=== PATIENT | female | born 1955 | race Caucasian/White ===

== ENCOUNTER 2020-03-18 15:48 | Outpatient (CLI) | payer OTHER, SELFPAY ==
--- NOTE | ~2020-03-18 | MM_ITS ---
EXAMINATION: MM screening [facility] BI w luis HISTORY: Screening mammogram TECHNIQUE: Craniocaudal and mediolateral oblique 3-D tomosynthesis images were obtained and synthetic 2-D images were generated. CAD analysis was submitted and interpreted. COMPARISON: 06/28/2018, 09/07/2016, 08/19/2015 BREAST PARENCHYMAL COMPOSITION: The breasts are heterogeneously dense, which may obscure small masses . FINDINGS: There is no evidence of suspicious mass, calcification, or architectural distortion to sugg est malignancy in either breast. There has been no suspicious interval change. IMPRESSION: 1. No mammographic evidence of malignancy. 2. Recommend routine screening mammography in one year. BI-RADS Category 1: Negative Reviewed, dictated and finalized at location A. NCIAL SALES ASSISTANT
== END 2020-03-18 15:49 | disposition home or self-care (01) ==
PROVIDERS: PCP Family Medicine; Visit Provider Obstetrics & Gynecology
DX: Z12.31 Encounter for screening mammogram for malignant neoplasm of breast (principal)
CPT/HCPCS: 77063; 77067

== ENCOUNTER → 2020-09-07 11:23 | Outpatient (CLI) | payer OTHER, SELFPAY ==
--- NOTE | ~2020-09-07 | XR_ITS ---
EXAMINATION:XR_CERV2-3V_CR DATE: 09/07/2020 12:03 INDICATION: Neck pain TECHNIQUE: AP, lateral, lateral swimmers and odontoid views of the cervical spine are provided. COMPARISON: None FINDINGS: Alignment is normal. The odontoid is intact. No fracture is identified. Vertebral body heig hts are maintained. There is mild loss of intervertebral disc space height at C5-6 and C6-7. Small de generative osteophytes project from the anterior endplates of multiple vertebral bodies. There is sev ere facet osteoarthritis on the left at C1-2. Moderate multilevel facet and uncovertebral joint osteo arthritis is seen throughout the remainder of the cervical spine. Prevertebral soft tissues are madeline l. IMPRESSION: 1. Moderate cervical spondylosis without acute findings. 2. 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 Reviewed, dictated and finalized at location A.
== END ==
PROVIDERS: PCP Family Medicine; Visit Provider Physician Assistant
DX: M47.892 Other spondylosis, cervical region (principal)
CPT/HCPCS: 72040

== ENCOUNTER 2021-02-01 01:33 | Day surgery (SDC) | payer OTHER, SELFPAY ==
[2021-01-22 13:00] VITALS: BMI 26.6
--- NOTE | 2021-01-29 13:49 | PM.HPGS ---
History of Present Illness History of Present Illness Consent: Risks, benefits, and alternatives have been discussed and questions answered. Patient agrees to proceed with procedure. Chief complaint: neoplasm screening Narrative: Radha Nagy is a 65 year old female referred for colon cancer screening. Her last colonoscopy was about 12 years ago and was unremarkable Review of Systems Review of Systems: All systems reviewed & are unremarkable except as noted in HPI and below PMFSH Past Medical History Medical History Anxiety Difficulty sleeping GERD (gastroesophageal reflux disease) HLD (hyperlipidemia) Onychomycosis Vitamin D deficiency, unspecified Wellness examination Surgical History Surgical History History of hysterectomy Family History Family History Father Family history of elevated blood lipids Family history of Parkinson's disease Mother Hypertension Social History Social History Smoking status: Never smoker Second hand tobacco smoke exposure: No Alcohol intake: current Alcohol use details: occasional Substance use: never Substance use type: does not use Living arrangements: alone Gender identity (if verbalized by the patient): Female Spiritual care concerns: No Meds Home Medications and Allergies Home Medications Medication Instructions Recorded Confirmed Type omeprazole 40 mg capsule,delayed 40 mg PO DAILY #30 cap 09/30/20 02/01/21 Rx release rosuvastatin 5 mg tablet 5 mg PO DAILY #90 tablet 09/30/20 02/01/21 Rx sertraline 100 mg tablet See Rx Instructions .ROUTE 10/22/20 02/01/21 Rx .COMPLEX #45 tablet krill dtm-hpina-0-dha-epa [Fish 1 cap PO DAILY 01/22/21 02/01/21 History Oil with Krill] qdmqqneggtzu-mll-updmzdr-FA 1 tablet PO DAILY 01/22/21 02/01/21 History [VIACTIV Multi-Vitamin] Allergies Allergy/AdvReac Type Severity Reaction Status Date / Time No Known Allergies Allergy Verified 02/01/21 06:14 Exam Resp: Auscultation: clear to auscultation bilaterally Cardio: Rate: regular rate Rhythm: regular rhythm GI: GI Palp: Yes Soft to palpation and No Tenderness to palpation present (GI) Assessment and Plan Assessment and plan (1) Colon cancer screening: Code(s): Z12.11 - Encounter for screening for malignant neoplasm of colon Status: Acute Assessment and Plan: Colonoscopy with possible biopsy or polypectomy or cautery or injection of substances.
--- NOTE | 2021-01-29 18:41 | P.PNAN_ITS ---
Anes - Initial Pre Proc Eval Procedure: Operation Date: 02/01/21 07:30 Proposed Procedures p Screening Colonoscopy - Omari Kaplan MD Date/Time: 01/29/21 18:41 Surgeon: Omari Kaplan MD Pre Op Diagnosis: neoplasm screening Patient Data Age: 65 Gender: F Height: 1.6 m Weight: 68.3 kg Allergies Allergy/AdvReac Type Severity Reaction Status Date / Time No Known Allergies Allergy Verified 02/01/21 06:14 Home Medications Medication Instructions Recorded Confirmed Type omeprazole 40 mg capsule,delayed 40 mg PO DAILY #30 cap 09/30/20 02/01/21 Rx release rosuvastatin 5 mg tablet 5 mg PO DAILY #90 tablet 09/30/20 02/01/21 Rx sertraline 100 mg tablet See Rx Instructions .ROUTE 10/22/20 02/01/21 Rx .COMPLEX #45 tablet krill cup-msjso-1-dha-epa [Fish 1 cap PO DAILY 01/22/21 02/01/21 History Oil with Krill] vlgyqdvysysm-nlb-qmzvxxo-FA 1 tablet PO DAILY 01/22/21 02/01/21 History [VIACTIV Multi-Vitamin] Patient hx anesthesia problems: none Family hx anesthesia problems: none Results Review: All pre-operative results and documents have been reviewed as part of the pre-operative evaluation. [facility] Past Medical History Medical History (Updated 01/29/21 @ 18:41 by Mike Vang DO) Anxiety Difficulty sleeping GERD (gastroesophageal reflux disease) HLD (hyperlipidemia) Onychomycosis Vitamin D deficiency, unspecified Wellness examination Surgical History Surgical History (Updated 01/29/21 @ 18:41 by Mike Vang DO) History of hysterectomy Family History Family History Father Family history of elevated blood lipids Family history of Parkinson's disease Mother Hypertension Social History Social History Smoking status: Never smoker Second hand tobacco smoke exposure: No Alcohol intake: current Alcohol use details: occasional Substance use: never Substance use type: does not use Living arrangements: alone Gender identity (if verbalized by the patient): Female Spiritual care concerns: No Anes - Eval Final PreProcedure Day of Procedure 12/17/21 18:41 Patient weight: overweight Heart: regular rate and rhythm Lungs: clear to auscultation and normal air movement Airway: Mallampati scale class II Neurological: alert and oriented Last oral intake: >/= 8 hours ASA classification: II Emergent: no Anesthetic plan: proceed Anesthesia type and monitoring: general GIVS and standard monitoring Results Review: All pre-operative results and documents have been reviewed as part of the pre-operative evaluation. Informed Consent: The patient's anesthetic plan and its attendant risks and benefits were discussed with the patient/family/POA. Questions were solicited and answers provided to the satisfaction of the patient/family/POA.
[2021-02-01 06:15] VITALS: BP 124/77; PULSE 97; RESP 16; TEMP 36.6; O2SAT 97
[2021-02-01] MEDS: LACTATED RINGERS 1,000 ML 150 ML IV CONT (06:17)
--- NOTE | 2021-02-01 06:19 | WPDANESEPP ---
Anes - Eval Pre Procedure Procedure: Operation Date: 02/01/21 07:30 Proposed Procedures p Screening Colonoscopy - Omari Kaplan MD Date/Time: 02/01/21 06:19 Pre Op Diagnosis: neoplasm screening Patient Data Age: 65 Gender: F Height: 1.6 m Weight: 62.2 kg Last Vital Signs Temp 36.6 C 02/01/21 06:15 Pulse 97 02/01/21 06:15 Resp 16 02/01/21 06:15 BP 124/77 02/01/21 06:15 Pulse Ox 97 02/01/21 06:15 Allergies Allergy/AdvReac Type Severity Reaction Status Date / Time No Known Allergies Allergy Verified 02/01/21 06:14 Home Medications Medication Instructions Recorded Confirmed Type omeprazole 40 mg capsule,delayed 40 mg PO DAILY #30 cap 09/30/20 02/01/21 Rx release rosuvastatin 5 mg tablet 5 mg PO DAILY #90 tablet 09/30/20 02/01/21 Rx sertraline 100 mg tablet See Rx Instructions .ROUTE 10/22/20 02/01/21 Rx .COMPLEX #45 tablet krill xtk-cfgjx-2-dha-epa [Fish 1 cap PO DAILY 01/22/21 02/01/21 History Oil with Krill] cvqvllbitutu-abd-ahgxpwa-FA 1 tablet PO DAILY 01/22/21 02/01/21 History [VIACTIV Multi-Vitamin] Patient hx anesthesia problems: none Family hx anesthesia problems: none Results Review: All pre-operative results and documents have been reviewed as part of the pre-operative evaluation. PMFSH Past Medical History Medical History (Updated 01/29/21 @ 18:41 by Mike Vang DO) Anxiety Difficulty sleeping GERD (gastroesophageal reflux disease) HLD (hyperlipidemia) Onychomycosis Vitamin D deficiency, unspecified Wellness examination Surgical History Surgical History (Updated 01/29/21 @ 18:41 by Mike Vang DO) History of hysterectomy Family History Family History Father Family history of elevated blood lipids Family history of Parkinson's disease Mother Hypertension Social History Social History Smoking status: Never smoker Second hand tobacco smoke exposure: No Alcohol intake: current Alcohol use details: occasional Substance use: never Substance use type: does not use Living arrangements: alone Gender identity (if verbalized by the patient): Female Spiritual care concerns: No Exam Day of Procedure 02/01/21 06:19
[2021-02-01 07:48] VITALS: BP 95/56; PULSE 62; RESP 14; O2SAT 99
[2021-02-01 07:58] VITALS: BP 133/75; PULSE 61; RESP 23; O2SAT 99
[2021-02-01 08:08] VITALS: BP 132/67; PULSE 60; RESP 17; O2SAT 100
== END 2021-02-01 08:20 | disposition home or self-care (01) ==
PROVIDERS: PCP Family Medicine; Visit Provider Internal Medicine Gastroenterology
PROC: 0DJD8ZZ Inspection of Lower Intestinal Tract, Via Natural or Artificial Opening Endoscopic (ICD-10-PCS; CPT 45378; principal; 2021-02-01 07:30)
DX: Z12.11 Encounter for screening for malignant neoplasm of colon (principal); K57.30 Diverticulosis of large intestine without perforation or abscess without bleeding; K21.9 Gastro-esophageal reflux disease without esophagitis; E78.5 Hyperlipidemia, unspecified; E55.9 Vitamin D deficiency, unspecified
CPT/HCPCS: 45378; J2704; J7120

== ENCOUNTER 2021-08-21 10:31 | Outpatient (CLI) | payer MEDICARE, SELFPAY ==
--- NOTE | ~2021-08-21 | MM_ITS ---
EXAMINATION: MM screening [facility] BI w luis HISTORY: Screening mammogram TECHNIQUE: Craniocaudal and mediolateral oblique 3-D tomosynthesis images were obtained and synthetic 2-D images were generated. CAD analysis was submitted and interpreted. COMPARISON: 03/18/2020, 06/28/2018 BREAST PARENCHYMAL COMPOSITION: There are scattered areas of fibroglandular density. FINDINGS: There is no suspicious mass, calcification, or architectural distortion to suggest malignan cy in either breast. There has been no suspicious interval change. IMPRESSION: 1. No mammographic evidence of malignancy. 2. Recommend routine screening mammography in one year. BI-RADS Category 1: Negative Reviewed, dictated and finalized at location A.
== END 2021-08-21 10:32 | disposition home or self-care (01) ==
PROVIDERS: PCP Family Medicine; Visit Provider Nurse Practitioner
DX: Z12.31 Encounter for screening mammogram for malignant neoplasm of breast (principal)
CPT/HCPCS: 77063; 77067

== ENCOUNTER 2021-09-03 12:14 | Outpatient (CLI) | payer MEDICARE, SELFPAY ==
--- NOTE | ~2021-09-03 | DEXA_ITS ---
Bone Density Report Name: CARLOS ALBERTO CASE Age: 66 Sex: Female Ethnicity: White Date of : 1955 Indication: osteopenia; hysterectomy; postmenopausal Referring Provider: BLAINE, DELICIA Study: Bone densitometry was performed. Exam Date: September 03, 2021 Accession number: [id number] Bone Density: Region BMD T-score Z-score Classification AP Spine(L1-L4) 0.920 -1.2 0.6 Osteopenia Femoral Neck (Left) 0.721 -1.2 0.4 Osteopenia Total Hip (Left) 0.862 -0.7 0.6 Normal Femoral Neck (Right) 0.713 -1.2 0.3 Osteopenia Total Hip (Right) 0.828 -0.9 0.3 Normal Total Hip Mean 0.845 -0.8 0.5 Normal World Health Organization criteria for BMD impression classify patients as: Normal (T-score at or above -1.0), Osteopenia (T-score between -1.0 and -2.5), or Osteoporosis (T-score at or below -2.5). 10-year Fracture Risk(1): Major Osteoporotic Fracture 8.4% Hip Fracture 0.7% Reported Risk Factors: [place] (), Neck BMD=0.713, BMI=25.2 (1) FRAX(R) Version 3.08. Fracture probability calculated for an untreated patient. Fracture probability may be lower if the patient has received treatment. Previous Exams: Region Exam Age BMD T-score BMD Change BMD Change Date g/cm2 vs Baseline vs Previous AP Spine (L1-L4) 09/03/2021 66 0.920 -1.2 -0.045 (-4.7%) 0.014 (1.5%) 07/10/2018 62 0.906 -1.3 -0.059 (-6.1%) -0.059 (-6.1%) 07/28/2014 59 0.966 -0.7 Total Hip(Left) 09/03/2021 66 0.862 -0.7 -0.004 (-0.5%) -0.015 (-1.7%) 07/10/2018 62 0.877 -0.5 0.011 (1.2%) 0.011 (1.2%) 07/28/2014 59 0.867 -0.6 Total Hip(Right) 09/03/2021 66 0.828 -0.9 -0.022 (-2.6%) -0.035 (-4.0%) 07/10/2018 62 0.862 -0.7 0.012 (1.5%) 0.012 (1.5%) 07/28/2014 59 0.850 -0.8 *Denotes significance at 95% confidence level, LSC for AP Spine = 0.022 g/cm2, LSC for Total Hip = 0.027 g/cm2 Clinical Information Provided by Patient: Has used the following medications: Vitamin D, Calcium Has the following medical conditions: Hysterectomy Patient maximum height was 63 Menopause Age: 32 No regular weight bearing exercise Drinks caffeinated beverages Onset of menses at age 13 Number of children 2 Impression: The patient has low bone mass, based on the Total Spine T-score. The patient has an estimated ten-year risk of hip fracture of 0.7% and an estimated ten-year risk of major fracture of 8.4%, based on the WHO FRAX algor
== END 2021-09-03 12:15 | disposition home or self-care (01) ==
LOC: ANHIMG 12:16
PROVIDERS: PCP Family Medicine; Visit Provider Nurse Practitioner
DX: M85.88 Other specified disorders of bone density and structure, other site (principal); M85.852 Other specified disorders of bone density and structure, left thigh; M85.851 Other specified disorders of bone density and structure, right thigh
CPT/HCPCS: 77080

== ENCOUNTER 2022-11-21 07:47 | Outpatient (CLI) | payer MEDICARE, SELFPAY ==
--- NOTE | ~2022-11-21 | MM_ITS ---
EXAMINATION: MM screening [place] BI w luis HISTORY: Screening mammogram TECHNIQUE: Craniocaudal and mediolateral oblique 3-D tomosynthesis images were obtained and synthetic 2-D images were generated. CAD analysis was submitted and interpreted. COMPARISON: 08/21/2021, 04/04/2020, 06/28/2018 bilateral screening mammogram examinations BREAST PARENCHYMAL COMPOSITION: There are scattered areas of fibroglandular density. FINDINGS: There is no evidence of suspicious mass, calcification, or architectural distortion to sugg est malignancy in either breast. There has been no suspicious interval change. IMPRESSION: 1. No mammographic evidence of malignancy. 2. Recommend routine screening mammography in one year. BI-RADS Category 1: Negative Reviewed, dictated and finalized at location A.
== END 2022-11-21 07:48 | disposition home or self-care (01) ==
LOC: ANHIMG 07:49
PROVIDERS: PCP Family Medicine; Visit Provider Nurse Practitioner
DX: Z12.31 Encounter for screening mammogram for malignant neoplasm of breast (principal)
CPT/HCPCS: 77063; 77067

== ENCOUNTER → 2023-04-05 11:05 | Outpatient (CLI) | payer MEDICARE, SELFPAY ==
--- NOTE | ~2023-04-05 | XR_ITS ---
EXAMINATION: XR lumbar spine 2-3V DATE: 04/05/2023 11:17 INDICATION: Low back pain TECHNIQUE: Anteroposterior and lateral views of the lumbar spine, and cone-down lateral view of the l umbosacral junction were obtained. COMPARISON: None. FINDINGS: Bone alignment is normal. There is no fracture. The vertebral body heights are maintained. There is mild loss of intervertebral disc space height at L5-S1. There is mild facet joint osteoarthr itis of the lower lumbar spine. The bowel gas pattern is unremarkable. There are phleboliths of the p yoshi. IMPRESSION: 1. Mild lumbar spondylosis without acute findings. Reviewed, dictated and finalized at location B. E LINING FINISHER
--- NOTE | ~2023-04-05 | XR_ITS ---
EXAMINATION: XR hip RT min 2V DATE: 04/05/2023 11:18 INDICATION: Right hip pain TECHNIQUE: Two views of right hip were obtained. COMPARISON: None. FINDINGS: Bone alignment is normal. There is no fracture. There is mild osteoarthritis of the right h ip. Phleboliths are noted in the pelvis. IMPRESSION: 1. No acute osseous abnormality. Reviewed, dictated and finalized at location B. E WINDER
== END ==
PROVIDERS: PCP Physician Assistant Medical; Visit Provider Physician Assistant Medical
DX: M25.551 Pain in right hip (principal); M47.896 Other spondylosis, lumbar region
CPT/HCPCS: 72100; 73502

== ENCOUNTER 2023-10-17 06:56 | Outpatient (CLI) | payer MEDICARE, SELFPAY ==
--- NOTE | ~2023-10-17 | MR_ITS ---
EXAMINATION: MR hip RT wo con DATE: 10/17/2023 07:50 INDICATION: Right hip pain TECHNIQUE: Magnetic resonance imaging (MRI) of the right hip was performed without intravenous contr ast. Sequences included full-field axial PD-weighted FS FSE and T1-weighted FSE, coronal of the pelvi s with PD-weighted FS FSE, T2-weighted FSE and T1-weighted FSE, small field of view of the right hip with axial PD-weighted FS FSE, sagittal PD-weighted FS FSE, coronal PD-weighted FS FSE and coronal T2 weighted FSE. Additional radial T1-weighted FGR oriented orthogonal to the acetabular rim were obt ained for evaluation of the labrum. COMPARISON: None FINDINGS: Bones/labrum/cartilage: Alignment is normal. No fracture, avascular necrosis or pathologic marrow replacing process. There i s a tear of the anterosuperior right acetabular labrum. Mild to moderate right hip osteoarthritis wit h nonuniform partial-thickness cartilage loss most prominent at the anterosuperior and superomedial a cetabulum. Deep chondral fissuring with underlying degenerative subchondral cystic change at the ante rosuperior acetabulum. Mild lower lumbar spondylosis. Fluid: Symmetric physiologic amount of fluid within both hip joints. Soft tissues: Normal and symmetric muscle bulk and signal in the pelvis and visualized proximal thighs. The iliopso as, gluteal and proximal hamstring tendons are normal. Limited evaluation of visceral organs of the p yoshi is unremarkable. No pathologically enlarged pelvic/inguinal lymphadenopathy. IMPRESSION: 1. 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 2. Tear of the anterosuperior right acetabular labrum. Reviewed, dictated and finalized at location A. IMPRESSION: 1. Mild to moderate right hip osteoarthritis with high-grade chondral malacia t he anterosuperior acetabulum. 2. Tear of the anterosuperior right acetabular labrum.
== END 2023-10-17 06:57 | disposition home or self-care (01) ==
PROVIDERS: PCP Family Medicine; Visit Provider Family Medicine
DX: M16.11 Unilateral primary osteoarthritis, right hip (principal); M94.251 Chondromalacia, right hip; S73.192A Other sprain of left hip, initial encounter; T14.90XA Injury, unspecified, initial encounter; Z79.1 Long term (current) use of non-steroidal anti-inflammatories (NSAID)
CPT/HCPCS: 73721

== ENCOUNTER 2023-11-19 09:59 | Emergency (ER) | payer MEDICARE, SELFPAY ==
[2023-11-19 10:23] VITALS: BP 140/78; PULSE 77; RESP 16; TEMP 37.1; O2SAT 99
--- NOTE | 2023-11-19 10:24 | ECG_ITS ---
Test Date: 2023-11-19 10:23:26 Measurements Intervals [place] Rate: 66 P: 61 AK: 141 QRS: -5 QRSD: 73 T: 53 QT: 382 QTc: 401 Interpretive Statements SINUS RHYTHM No previous ECG available for comparison Electronically Signed On 11-19-2023 11:40:42 CDT by Rene Sears M.D.
[2023-11-19 10:25] VITALS: BP 142/85; PULSE 76
[2023-11-19 10:26] VITALS: BP 122/72; BP 133/69; PULSE 72; PULSE 84
--- NOTE | 2023-11-19 10:58 | ED.DIZZY ---
HPI - Dizziness General Chief Complaint: Dizziness Stated Complaint: DIZZY Source: patient Mode of arrival: ambulatory Limitations: no limitations History of Present Illness HPI Narrative: Pt presents for evaluation of dizziness. Symptom onset two days ago. she received COVID and flu vaccines the day prior to symptom onset. She had some body aches and headache which she attributed to the vaccines. Those symptoms have resolved. She continues to have dizziness which has been constant for the last 2 days. She does not feel like the room is spinning. She denies any chest pain, SOB, urinary symptoms, otalgia, tinnitus, hearing loss or drainage from the ears. No change in medications as of late. Related Data Home Medications Medication Instructions Recorded Confirmed krill ffg-snxyq-1-dha-epa 150 1 cap PO DAILY 01/22/21 11/19/23 mg-450 mg capsule,delayed release calcium 600 mg (as 1 cap PO DAILY 06/06/22 11/19/23 carbonate)-vitamin D3 25 mcg (1,000 unit) capsule Allergies Allergy/AdvReac Type Severity Reaction Status Date / Time No Known Allergies Allergy Verified 11/19/23 10:23 Review of Systems Review of Systems: CONSTITUTIONAL: Denies fever, chills, or sweats. EYES: Denies visual changes, redness, or discharge. ENT: Denies rhinorrhea, congestion, sore throat, or otalgia. CARDIOVASCULAR: Denies chest pain, palpitations, or edema. RESPIRATORY: Denies cough or dyspnea. GASTROINTESTINAL: Denies abdominal pain, nausea, vomiting, or diarrhea. GENITOURINARY: Denies dysuria or hematuria. SKIN: Denies rash or itching. MUSCULOSKELETAL: Reports recent body aches, none currently. NEUROLOGIC: Reports dizziness for the past two days. Reports recent headache, none currently. Denies numbness, dizziness, or weakness. PSYCHIATRIC: Denies anxiety or depression. [facility] Past Medical History Medical History Anxiety Difficulty sleeping GERD (gastroesophageal reflux disease) HLD (hyperlipidemia) Onychomycosis Vitamin D deficiency, unspecified Wellness examination Surgical History Surgical History History of hysterectomy Family History Family History Father Family history of elevated blood lipids Family history of Parkinson's disease Mother Hypertension Social History Social History Smoking status: Never smoker Second hand tobacco smoke exposure: No Alcohol intake: current Alcohol use details: occasional Substance use: never Substance use type: does not use Living arrangements: alone Occupation/Education: occupation Gender identity (if verbalized by the patient): Female Spiritual care concerns: No Exam Narrative: GENERAL: Well-appearing, well-nourished, and in no acute distress. HEAD: Normocephalic, atraumatic. EYES: PERRLA and EOMI. ENT: Nares clear, no rhinorrhea or epistaxis. Mucous membranes moist. Oropharynx without tonsillar hypertrophy exudate or other lesions. Right ear canal is ceruminous NECK: Supple. No adenopathy or masses. No carotid bruits or JVD CHEST: Clear to auscultation. No respiratory distress. No wheezes rales or rhonchi HEART: Regular rate and rhythm. No murmur heard. Normal peripheral pulses. ABDOMEN: Soft, nontender, nondistended, normal active bowel sounds. EXTREMITIES: Normal range of motion. No edema. SKIN: Warm, dry, no rash. NEURO: No focal deficits. Alert and oriented x3. PSYCH: Normal mood and affect. Course Course Emergency Course: This is a 68-year-old female who presented for evaluation of dizziness. No evidence of infection in her urine today. EKG showed normal sinus rhythm with no acute ischemic changes. She was not orthostatic. I irrigated her right ear with hydrogen peroxide and wate
[2023-11-19 11:11] LABS: EDUAAPPEAR Clear; EDUABILI Negative (Negative); EDUABLOOD Negative (Negative); EDUACOLOR1 Yellow; EDUAGLUCOSE Negative (Negative); EDUAKETONE Negative (Negative); EDUALEUKO Negative (Negative); EDUANITRATE Negative (Negative); EDUAPROTEIN Negative (Negative); EDUASPGRAVITY 1.015; EDUAUROBILI 0.2
[2023-11-19] MEDS: ONDANSETRON HCL ODT 4 MG TABLET PO (11:38)
--- NOTE | 2023-11-19 12:40 | PC.NURSE ---
1200 provider did ear irrigation for patient before discharge to the ED; patient reports that her dizziness was a 8 when she arrived and post-irrigation is a 4-5. Patient was able to walk unassisted in the ruby with provider. Daughter will transport her to the hospital for further evaluation.
== END 2023-11-19 12:10 | disposition short-term general hospital (02) ==
PROVIDERS: Emergency Provider Nurse Practitioner; PCP Family Medicine
DX: R42 Dizziness and giddiness (principal); H61.21 Impacted cerumen, right ear; K21.9 Gastro-esophageal reflux disease without esophagitis; E78.5 Hyperlipidemia, unspecified; E55.9 Vitamin D deficiency, unspecified
CPT/HCPCS: 69210; 81003; 93005; 99213; A9270; G0463

== ENCOUNTER 2023-11-19 12:25 | Emergency (ER) | payer MEDICARE, SELFPAY ==
[2023-11-19 12:31] VITALS: BP 142/74; PULSE 62; RESP 18; TEMP 36.7; O2SAT 100
--- NOTE | 2023-11-19 12:38 | PC.NURSE ---
pt LWSTEVE, stated that because it was going to be a while, she would follow up in the AM with her PCP
--- NOTE | 2023-11-19 12:56 | PC.NURSE ---
patient leaves waiting room prior to being seen by provider. states they would like to try over the counter vertigo medication and return if they begin to have symptoms again. patient ambulates with steady gait and appears in no resp. distress.
== END 2023-11-19 12:56 | disposition left against medical advice (07) ==
LOC: ANHED 12:51
PROVIDERS: PCP Family Medicine
DX: R42 Dizziness and giddiness (principal)
CPT/HCPCS: 99199

== ENCOUNTER 2023-12-27 14:41 | Outpatient (CLI) | payer MEDICARE, SELFPAY ==
--- NOTE | ~2023-12-27 | MM_ITS ---
EXAMINATION: MM screening [facility] BI w luis HISTORY: Screening mammogram TECHNIQUE: Craniocaudal and mediolateral oblique 3-D tomosynthesis images were obtained and synthetic 2-D images were generated. CAD analysis was submitted and interpreted. COMPARISON: 11/21/2022, 08/21/2021, 03/18/2020 BREAST PARENCHYMAL COMPOSITION:Not Dense. There are scattered areas of fibroglandular density. FINDINGS: No suspicious mass, calcification, or architectural distortion are identified in either ilda ast to suggest malignancy. There has been no suspicious interval change. IMPRESSION: No mammographic evidence of malignancy. Recommend routine screening mammography in one year. BI-RADS Category 1: Negative Reviewed, dictated and finalized at location . DE SOLAR SALES CONSULTANT
== END 2023-12-27 14:42 | disposition home or self-care (01) ==
LOC: ANHIMG 14:43
PROVIDERS: PCP Family Medicine; Visit Provider Obstetrics & Gynecology Gynecology
DX: Z12.31 Encounter for screening mammogram for malignant neoplasm of breast (principal)
CPT/HCPCS: 77063; 77067

== ENCOUNTER 2024-01-29 10:23 | Outpatient (CLI) | payer MEDICARE, SELFPAY ==
--- NOTE | ~2024-01-29 | MR_ITS ---
MRI of the lumbar spine Clinical History: Radiculopathy Technique: Axial T2-weighted images, and sagittal T1-weighted, T2-weighted, and T2 fat-sat images wer e acquired. Findings: There is no fracture or subluxation of the lumbar spine. Vertebral bodies maintain normal h eight and alignment. No bone marrow signal abnormality seen. At L1-L2, L2-L3, there is no disc bulge or herniation. There is mild facet arthropathy. No central ca nal stenosis or neural foraminal narrowing at these levels. At L3-L4, there is minimal disc bulge with moderate facet arthropathy. No central canal stenosis. The re is minimal bilateral neural foraminal narrowing. At L4-L5, there is central disc protrusion with mild to moderate facet arthropathy. No central canal stenosis or neural foraminal narrowing. At L5-S1, there is mild degenerative disc narrowing. There is minimal disc bulge with advanced facet arthropathy. No central canal stenosis or definite neural foraminal narrowing. Impression: Mild degenerative spondylosis, as above. Reviewed, dictated and finalized at [facility]. LAINT INVESTIGATOR Impression: Mild degenerative spondylosis, as above.
== END 2024-01-29 10:24 | disposition home or self-care (01) ==
LOC: MICIMG 10:24
PROVIDERS: PCP Family Medicine; Visit Provider Orthopaedic Surgery
DX: M47.26 Other spondylosis with radiculopathy, lumbar region (principal)
CPT/HCPCS: 72148

== ENCOUNTER 2024-05-01 10:52 | Outpatient (CLI) | payer MEDICARE, SELFPAY ==
--- NOTE | ~2024-05-01 | DEXA_ITS ---
Bone Density Report Name: CARLOS ALBERTO CASE Age: 68 Sex: Female Ethnicity: White Date of : 1955 Indication: osteopenia; hysterectomy; Referring Provider: NICA, KENN Study: Bone densitometry was performed. Exam Date: May 01, 2024 Accession number: [id number] Bone Density: Region BMD T-score Z-score Classification AP Spine(L1-L4) 0.893 -1.4 0.6 Osteopenia Femoral Neck (Left) 0.683 -1.5 0.2 Osteopenia Total Hip (Left) 0.870 -0.6 0.8 Normal Femoral Neck (Right) 0.683 -1.5 0.2 Osteopenia Total Hip (Right) 0.840 -0.8 0.5 Normal Total Hip Mean 0.855 -0.7 0.7 Normal World Health Organization criteria for BMD impression classify patients as: Normal (T-score at or above -1.0), Osteopenia (T-score between -1.0 and -2.5), or Osteoporosis (T-score at or below -2.5). 10-year Fracture Risk(1): Major Osteoporotic Fracture 9.7% Hip Fracture 1.2% Reported Risk Factors: [place] (), Neck BMD=0.683, BMI=25.2 (1) FRAX(R) Version 3.08. Fracture probability calculated for an untreated patient. Fracture probability may be lower if the patient has received treatment. Previous Exams: Region Exam Age BMD T-score BMD Change BMD Change Date g/cm2 vs Baseline vs Previous AP Spine (L1-L4) 05/01/2024 68 0.893 -1.4 -0.072 (-7.5%) -0.027 (-2.9%) 09/03/2021 66 0.920 -1.2 -0.045 (-4.7%) 0.014 (1.5%) 07/10/2018 62 0.906 -1.3 -0.059 (-6.1%) -0.059 (-6.1%) 07/28/2014 59 0.966 -0.7 Total Hip(Left) 05/01/2024 68 0.870 -0.6 0.004 (0.4%)# 0.008 (0.9%)# 09/03/2021 66 0.862 -0.7 -0.004 (-0.5%) -0.015 (-1.7%) 07/10/2018 62 0.877 -0.5 0.011 (1.2%) 0.011 (1.2%) 07/28/2014 59 0.867 -0.6 Total Hip(Right) 05/01/2024 68 0.840 -0.8 -0.010 (-1.2%) 0.012 (1.5%)# 09/03/2021 66 0.828 -0.9 -0.022 (-2.6%) -0.035 (-4.0%) 07/10/2018 62 0.862 -0.7 0.012 (1.5%) 0.012 (1.5%) 07/28/2014 59 0.850 -0.8 *Denotes significance at 95% confidence level, LSC for AP Spine = 0.022 g/cm2, LSC for Total Hip = 0.027 g/cm2 # Denotes dissimilar scan types or analysis methods Clinical Information Provided by Patient: Has used the following medications: Vitamin D, Calcium Has the following medical conditions: Hysterectomy Patient maximum height was 63 Menopause Age: 32 Drinks caffeinated beverages Onset of menses at age 13 Number of children 2 Impression: The patient has low bone mass, based on the Left Femoral Neck T-score. The patient has an estimated ten-year risk of hip fracture of 1.2% and an estimated ten-year risk of major fracture of 9.7%, based on the WHO FRAX algorithm. No significant bone loss was observed. Discussion: BONE DENSITY IS LOW AT ONE OR MORE SKELETAL SITES. This patient's lowest T-score is low at one or more skeletal sites. It meets the World Health Organization's (WHO) criteria for ?low bone mass? (T-score between -1.0 and -2.5). The patient's 10-year risk of fracture as calculated by FRAX is less than the threshold where pharmacological therapy is recommended by the National Osteoporosis Foundation (NOF). However, all treatment decisions require clinical judgment and consideration of individual patient factors, including patient preferences, comorbidities, previous drug use, risk factors not captured in the FRAX model (e.g., frailty, falls, vitamin D deficiency, increased bone turnover, interval significant decline in bone density) and possible under or overestimation of fracture risk by FRAX. The patient should follow a healthful lifestyle (good nutrition with adequate calcium and vitamin D, and appropriate weight-bearing exercise). Follow-Up: Consider repeating this study in 2 to 3 years to reassess this patient's status, or sooner if there is some new clinical indication. Reported by: JINNY on 05/01/2024 11:32:00 AM. Reviewed, dictated and finalized at location ACharissa LANGLEY
--- OUTSIDE RECORDS SUMMARY | 2024-05-01 12:43 | XMS_ITS | Continuity of Care Document ---
Author Organization [facility] Address [address] [place] [address] Phone Care Team Providers Care Sales And Leasing Consultant Name Role Phone Alesha Kay MD Unavailable Unavailable Advance Directives Directive Yes / No Effective Date File Name No Information Encounters Encounter Description Practice Location Reason(s) For Visit Diagnoses Date Provider Providers Copied on Encounter [facility], [address], [place], [place], [id number], tel:[phone] No Information Rahul Eduardo. [facility], [id number], [place]. tel:[phone] Family History Family Member Type Diagnosis Age At Onset No Information Payers Payer name Insurance type Covered republican ID Authoriza tion(s) [facility] [id number] Social History Type Description Quantity Date Captured Comments Sex Female Smoking Status No Information Chief Complaint And Reason For Visit No Information Reason For Referral Reason For Referral No Information History Of Present Illness Encounter Date Complaint History Of Prese nt Illness No Information Functional Status Date Functional Assessmen t No Information Instructions Date Instruction Additional Infor mation No Information Assessments Type Assessment Date No Information Patient Care Teams Name Effective Dates (start - stop) Status Members No Information
--- OUTSIDE RECORDS SUMMARY | 2024-05-01 12:43 | XMS_ITS | Encounter Summary ---
Author Organization [facility] Address [address] [place] [address] Care Team Providers Care Strapper Operator Name Role Phone Adria Keyes MD Primary Care Provider [phone] Encounter Details Date Type Department Care Team (Late st Contact Info) Description 08/30/2018 Lab Requisition [facility] Care DermPath Lab [address], [place] [id number] Raul Mccarty MD [address] [place] [address] Social History Tobacco Use Types Packs/Day Years Used Date Smoking Tobacco: Never Assessed Sex and Gender Information Value Date Recorded Sex Assigned at Not on file Gender Identity Not on file Sexual Orientation Not on file documented as of this encounter Plan of Treatment Not on file documented as of this encounter Procedures Procedure Name Priority Date/Time Associated Diagnosis Comments DERMATOPATHOLOGY Routine 08/29/2018 12:0 0 AM CDT documented in this encounter Results * DERMATOPATHOLOGY (08/29/2018 12:00 AM CDT) Case Report Dermatopathology Report Case: [id number] Authorizing Provider: Raul Mccarty MD Collected: 08/29/2018 12:00 AM Pathologist: Placido Davila MD Received: 08/30/2018 11:44 AM Specimen: Skin, left distal ant thigh 9 3:46 PM CDT DERMATOPATHOLOGY LABORATORY Final Diagnosis Specimen A. SKIN, left distal ant thigh: BENIGN VERRUCOUS KERATOSIS, INFLAMED (L82.1) 3:46 PM CDT DERMATOPATHOLOGY LABORATORY Clinical History R/O SCC, ISK. 3:46 PM CDT DERMATOPATHOLOGY LABORATORY Gross Description Specimen A: Received is one formalin filled container labeled with the patient's name and designated left distal ant thigh. The specimen consists of a shave biopsy measuring [id number]. Jar 0. 3:46 PM CDT DERMATOPATHOLOGY LABORATORY Microscopic Description Specimen A. SKIN, left distal ant thigh: Sections show hyperkeratosis, papillomatosis, hypergranulosis, and acanthosis. Inflammatory cells are present within the dermis. These histological findings can be seen in a verruca vulgaris or a seborrheic keratosis. 3:46 PM CDT DERMATOPATHOLOGY LABORATORY Disclaimer An external and internal positive and negative controls are appropriate for the histochemical, immunohistochemical and immunofluorescence stain(s) in this case (if any), except where stated explicitly. The performance characteristics of the stain(s) cited in this report were developed and its performance characteristic determined by the Dermatopathology Laboratory at [facility], directed by Dr. Kim Davila. These tests need not be, and therefore are not, approved by the [place] Food and Drug Administration. The tests are used for clinical purposes. Billing Codes Specimen Charges Stain Charges 80554 1 3:46 PM CDT DERMATOPATHOLOGY LABORATORY Embedded Images 3:46 PM CDT DERMATOPATHOLOGY LABORATORY Pathology/Cytolog y TISSUE SPECIMEN FROM SKIN / Unknown 08/29/2018 08/30/2018 11:44 AM CDT Raul Mccarty MD LAB - PATHOLOGY/CYTO LOGY ORDERABLES DERMATOPATHOLOGY LABORATORY [facility] - Department of Dermatology [address], [address] Lab [place], [place] [id number] [place] [address] documented in this encounter Visit Diagnoses Not on filedocumented in this encounter Care Teams Strapper Operator Relationship Specialty Start Date End Date Adria Keyes MD [address] [place] [id number] PCP - General 08/30/18 documented as of this encounter
--- OUTSIDE RECORDS SUMMARY | 2024-05-01 12:43 | XMS_ITS | Clinical Summary ---
Author Organization [facility] Address [address] [place] [address] Care Team Providers Care Senior Marketing Associate Name Role Phone Adria Keyes MD Primary Care Provider [phone] Source Comments [facility],non-owned Affiliates and Associated Physician Practices is amultiple site organization consisting of ambulatory clinics and hospital sitesin [place], [place], [place] and [place]. This disclosure is being madepursuant to the Care Everywhere program and may not contain all information available regarding this patient. Last updated 17.[facility] Social History Tobacco Use Types Packs/Day Years Used Date Smoking Tobacco: Never Assessed Sex and Gender Information Value Date Recorded Sex Assigned at Not on file Gender Identity Not on file Sexual Orientation Not on file Plan of Treatment Health Maintenance Due Date Last Done Comments BONE DENSITY TESTING 1955 COLOGUARD (AGES 45-75) - COL ON CA SCREENING 1955 COLON MONITORING 1955 COLONOSCOPY - COLON CA SCREENING 1956 CT COLONOGRAPHY - COLON CA SCREENING 1955 Colorectal Cancer Screening 1955 FIT - COLON CA SCREENING 1955 FLEX SIG - COLON CA SCREENING 1955 LIPID TESTING 1955 MAMMOGRAM 1955 HEPATITIS C SCREENING 07/12/1974 DTAP/TDAP/TD VACCINES (1 - Tdap) 07/17/1975 PNEUMOCOCCAL VACCINE 50+ (1 of 1 - PCV) 2006 ZOSTER VACCINE (1 of 2) 2006 COVID-19 VACCINE ( - 2023-2 5 season) 2023 INFLUENZA VACCINE (#1) 2023 DEPRESSION SCREENING 02/14/2024 MEDICARE AWV CALENDAR YEAR 2024 Respiratory Syncytial Virus (RSV) Vaccine Pt: or over 60 yrs (1 - 1-dose 75+ series) 07/17/2031 HEPATITIS B VACCINE Aged Out No longe r eligible based on patient's age to complete this topic HIB VACCINE Aged Out No longer eligi ble based on patient's age to complete this topic HPV VACCINE Aged Out No longer eligi ble based on patient's age to complete this topic MENINGOCOCCAL (Group B) VACC INE SHARED DECISION-MAKING Aged Out No longer eligibl e based on patient's age to complete this topic MENINGOCOCCAL GROUPS A/C/Y/W VACCINE Aged Out No longer eligible b ased on patient's age to complete this topic Care Teams Senior Marketing Associate Relationship Specialty Start Date End Date Adria Keyes MD [address] [place] [id number] PCP - General 08/30/18
--- OUTSIDE RECORDS SUMMARY | 2024-05-01 12:43 | XMS_ITS | Encounter Summary ---
Author Organization [facility] Address [address] [place] [address] Care Team Providers Care X Ray Technician Name Role Phone Adria Keyes MD Primary Care Provider [phone] Encounter Details Date Type Department Care Team (Late st Contact Info) Description 02/15/2023 Lab Requisition [facility] - DermPath Lab [address] [place] [id number] Raul Mccarty MD [address] [place] [address] Social History Tobacco Use Types Packs/Day Years Used Date Smoking Tobacco: Never Assessed Sex and Gender Information Value Date Recorded Sex Assigned at Not on file Gender Identity Not on file Sexual Orientation Not on file documented as of this encounter Plan of Treatment Not on file documented as of this encounter Procedures Procedure Name Priority Date/Time Associated Diagnosis Comments DERMATOPATHOLOGY Routine 02/14/2023 3:33 AM ENVIRONMENTAL SPECIALIST documented in this encounter Results * DERMATOPATHOLOGY (02/14/2023 3:33 AM ENVIRONMENTAL SPECIALIST) Case Report Dermatopathology Report Case: [id number] Authorizing Provider: Raul Mccarty MD Collected: 02/14/2023 03:33 AM Ordering Location: [facility] DermPath Lab Received: 02/15/2023 02:16 PM Pathologist: Inez Lamb MD Specimen: Skin, left lat forehead 2:53 PM ENVIRONMENTAL SPECIALIST DERMATOPATHOLOGY LABORATORY Final Diagnosis Specimen A. 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 The specimen consists of a shave biopsy measuring 7x6x1 mm. Jar 0. 2:53 PM [facility] DERMATOPATHOLOGY LABORATORY Microscopic Description Specimen A. SKIN, left lat forehead: Sections show non-specific changes, including solar elastosis and vascular ectasia as well as a perifollicular lymphohistiocytic infiltrate. Some follicles contain demodex mites. There is additionally dermal edema with a slight increase in interstitial mast cells. Additional deeper sections were obtained and reviewed. COMMENT: Carcinoma is not observed on multiple deeper level sections. These findings may be consistent with an inflammatory papule of rosacea in the correct clinical context. However, if these findings do not correlate well clinically, or the lesion persists or recurs, consideration could be given to repeat sampling. 2:53 PM [facility] DERMATOPATHOLOGY LABORATORY Disclaimer An external and internal positive and negative controls are appropriate for the histochemical, immunohistochemical and immunofluorescence stain(s) in this case (if any), except where stated explicitly. The performance characteristics of the stain(s) cited in this report were developed and its performance characteristic determined by the Dermatopathology Laboratory at [facility], directed by Dr. Kim Davila. These tests need not be, and therefore are not, approved by the [place] Food and Drug Administration. The tests are used for clinical purposes. Billing Codes Specimen Charges Stain Charges 04643 1 2:53 PM [facility] DERMATOPATHOLOGY LABORATORY Embedded Images 2:53 PM [facility] DERMATOPATHOLOGY LABORATORY Pathology/Cytolo gy TISSUE SPECIMEN FROM SKIN / Unknown 02/14/2023 3:33 AM ENVIRONMENTAL SPECIALIST 02/15/2023 2:16 PM ENVIRONMENTAL SPECIALIST Raul Mccarty MD LAB - PATHOLOGY/CYTO LOGY ORDERABLES DERMATOPATHOLOGY LABORATORY [facility] - Department of Dermatology [facility] Medicine [address] [place] [address], [address] [phone] documented in this encounter Visit Diagnoses Not on filedocumented in this encounter Care Teams X Ray Technician Relationship Specialty Start Date End Date Adria Keyes MD [facility] [place] [address] PCP - General 08/30/18 documented as of this encounter
--- OUTSIDE RECORDS SUMMARY | 2024-05-01 12:43 | XMS_ITS | Clinical Summary ---
Author Organization [facility] Address [facility] [place] [address] Care Team Providers Care Applications Analyst Name Role Phone Marcelino Campo Primary Care Provider [phone] Medications omeprazole (PRILOSEC) 40 MG capsule Take 1 capsule (40 mg total) by mouth daily. Active sertraline (ZOLOFT) 100 MG tablet Take 1 tablet (100 mg total) by mouth daily. Active rosuvastatin (CRESTOR) 10 MG tablet Take 1 tablet (10 mg total) by mouth nightly at bedtime. Active Family History Medical History Relation Comments Parkinson's Disease Father high cholesterol Father Hypertension Mother spinal stenosis Mother Relation Status Comments Father Mother Social History Tobacco Use Types Packs/Day Years Used Date Smoking Tobacco: Never Smokeless Tobacco: Never Tobacco Cessation:Counseling Given: Not Answered Alcohol Use Standard Drinks/Week Comments Yes 0 (1 standard drink = 0.6 oz pur e alcohol) rare PHQ-2 Answer Date Recorded Patient Health Questionnaire-2 Score 1 07/14/2022 Comments Unknown Sex and Gender Information Value Date Recorded Sex Assigned at Not on file Legal Sex Female 9:34 AM CDT Gender Identity Not on file Sexual Orientation Not on file Last Filed Vital Signs Vital Sign Reading Time Taken Comments Blood Pressure 120/69 07/14/2022 9:15 AM CDT Pulse 69 07/14/2022 9:15 AM CDT Temperature 36.9 C (98.4 F) 07/14/2022 9:15 AM CDT Respiratory Rate - - Oxygen Saturation 97% 07/14/2022 9:15 AM CDT Inhaled Oxygen Concentration - - Weight 63.1 kg (139 lb 3.2 oz) 07/14/2022 9:15 A M CDT Height 160 cm (5' 3 ) 07/14/2022 9:15 AM CDT Body Mass Index 24.66 07/14/2022 9:15 AM CDT Plan of Treatment Health Maintenance Due Date Last Done Comments Colorectal Cancer Screening Colonoscopy (10 Years) 1956 Hepatitis C 1974 DTaP, Tdap and Td Vaccines ( 1 - Tdap) 07/17/1975 Mammogram Screening 1996 Zoster Vaccines (1 of 2) 2006 Annual Medicare Wellness Visit 2021 Dexa Scan (General) 2021 Pneumococcal Vaccine: 65+ Ye ars (1 of 1 - PCV) 2021 PHQ-2 (Physician [place] [facility] [place] 07/15/2023 07/14/2022 COVID-19 Vaccine (2 - 2023-2 5 season) 2023 11/09/2021 Influenza Adult (#1) 2023 PHQ-2 (Physician [facility] [facility] [place] 02/14/2024 07/14/2022 RSV Immunization or 60+ Years (1 - 1-dose 75+ series) 07/17/2031 Meningococcal B Vaccine Aged Out No l onger eligible based on patient's age to complete this topic Meningococcal Vaccine Aged Out No edith hermes eligible based on patient's age to complete this topic RSV Immunizations Under 20 Months Aged Out No longer eligible based on patient's age to complete this topic Insurance [employer] Care Teams Applications Analyst Relationship Specialty Start Date End Date Marcelino Campo [place] [address] [address] PCP - General PHYSICIAN INSURANCE MANAGER 06/10/22
== END 2024-05-01 10:53 | disposition home or self-care (01) ==
PROVIDERS: PCP Family Medicine; Visit Provider Nurse Practitioner Women's Health
DX: M85.89 Other specified disorders of bone density and structure, multiple sites (principal); Z78.0 Asymptomatic menopausal state
CPT/HCPCS: 77080

== ENCOUNTER 2024-06-11 15:56 | Outpatient (CLI) | payer MEDICARE, SELFPAY ==
--- NOTE | ~2024-06-11 | XR_ITS ---
AP and lateral views of the pelvis CLINICAL HISTORY: Sacroiliitis FINDINGS: No fracture or dislocation seen. SI joints and hip joints appear unremarkable. No erosive c hange or scar lordosis. No degenerative change. Soft tissues are unremarkable. IMPRESSION: Unremarkable exam. Reviewed, dictated and finalized at location . IMPRESSION: Unremarkable exam.
== END 2024-06-11 15:57 | disposition home or self-care (01) ==
LOC: MICIMG 15:58
PROVIDERS: PCP Family Medicine; Visit Provider Physical Medicine & Rehabilitation Pain Medicine
DX: M46.1 Sacroiliitis, not elsewhere classified (principal)
CPT/HCPCS: 72190

== ENCOUNTER 2024-09-27 08:06 | Outpatient (CLI) | payer MEDICARE, SELFPAY ==
--- NOTE | ~2024-09-27 | XR_ITS ---
XR hip LT min 2V 09/27/2024 08:22 Indication: Left hip pain Procedure: 2 views left hip Comparison: 06/11/2024 Findings: No fracture, subluxation or dislocation. There is anatomic alignment. No soft tissue abnorm ality. No foreign bodies. Impression: 1: No acute bone or joint abnormality. Reviewed, dictated and finalized at location A. Impression: 1: No acute bone or joint abnormality.
== END 2024-09-27 08:07 | disposition home or self-care (01) ==
LOC: MICIMG 08:07
PROVIDERS: PCP Family Medicine; Visit Provider Physical Medicine & Rehabilitation Pain Medicine
DX: M25.552 Pain in left hip (principal)
CPT/HCPCS: 73502

== ENCOUNTER 2024-12-30 12:02 | Outpatient (CLI) | payer MEDICARE, SELFPAY ==
--- NOTE | ~2024-12-30 | MM_ITS ---
EXAMINATION: MM screening [place] [facility] HISTORY: Screening TECHNIQUE: Craniocaudal and mediolateral oblique 3-D tomosynthesis images were obtained and synthetic 2-D images were generated. CAD analysis was submitted and interpreted. COMPARISON: Comparison to multiple prior studies sequentially, with oldest reviewed study dated , 06/28/2018 BREAST PARENCHYMAL COMPOSITION: There are scattered areas of fibroglandular density. FINDINGS: There is no evidence of suspicious mass, calcification, or architectural distortion to suggest malignancy in either breast. IMPRESSION: 1. No mammographic evidence of malignancy. 2. Recommend routine screening mammography in one year. BI-RADS Category 1: Negative Reviewed, dictated and finalized at location B. TER HOP
== END 2024-12-30 12:03 | disposition home or self-care (01) ==
LOC: CHSIMG 12:04
PROVIDERS: PCP Family Medicine; Visit Provider Obstetrics & Gynecology Gynecology
DX: Z12.31 Encounter for screening mammogram for malignant neoplasm of breast (principal)
CPT/HCPCS: 77063; 77067